=== PATIENT | male | born 2000 | race African-American/Black ===

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

== ENCOUNTER 2018-02-26 19:03 | Emergency (ER) | payer MEDICAID ==
[~2018-02-26] VITALS: Ht 175.3 cm; Wt 75.0 kg
[2018-02-26 19:04] VITALS: BP 123/79
--- NOTE | 2018-02-26 19:11 | NUR ---
BIB [facility] WITH C/O SEIZURE 1/2 HOUR AGO HAS HX OF SEIZURES HAS ONE, 1 X PER MTH PT TAKES PO KEPRA, TOOK MEDS TODAY, IN NAD AT THIS TIME SEE ASSESSMENT VS WNL
[2018-02-26 19:52] LABS: BASOPHILS # (AUTO) 0.05 x10^3/uL (0-0.3); BASOPHILS % (AUTO) 1 % (0-1); EOSINOPHILS # (AUTO) 0.08 x10^3/uL (0-0.8); EOSINOPHILS % (AUTO) 2 % (1-7); LYMPHOCYTES # (AUTO) 1.21 x10^3/uL (1-6.1); LYMPHOCYTES % (AUTO) 25 % (22-44); MD NO; MEAN CORPUSCULAR HEMOGLOBIN 30.8 pg (27.5-34.5); MEAN CORPUSCULAR HGB CONC 34.2 g/dL (33.2-36.2); MEAN PLATELET VOLUME 9.1 fL (7.4-10.4); MONOCYTES # (AUTO) 0.49 x10^3/uL (0-1.4); MONOCYTES % (AUTO) 10 % (2-9); NEUTROPHILS % (AUTO) 62 % (42-75); PLATELET COUNT 182 x10^3/uL (130-400); RED BLOOD COUNT 4.83 x10^6/uL (4.38-5.82); RED CELL DISTRIBUTION WIDTH 13.9 % (9.4-14.8)
[2018-02-26 20:02] LABS: ANION GAP 7 mmol/L (5-15); CALCIUM 8.7 mg/dL (8.5-10.1); CHLORIDE 109 mmol/L (98-107)
[2018-02-26] MEDS ORDERED: LEVETIRACETAM 500 MG TABLET PO STA (20:03)
[2018-02-26 20:06] LABS: ALANINE AMINOTRANSFERASE 22 U/L (12-78); ALKALINE PHOSPHATASE 105 U/L (45-117); BILIRUBIN,TOTAL 0.5 mg/dL (0.2-1.0); CREATININE 1.11 mg/dL (0.7-1.3); TOTAL PROTEIN 6.9 g/dL (6.4-8.2)
[2018-02-26] MEDS ORDERED: LEVETIRACETAM 500 MG TABLET ONE (20:55)
--- NOTE | 2018-02-26 21:08 | NUR ---
Patient/Caregiver given discharge instructions and they have confirmed that they understand the instructions. Patient ambulatory with steady gait.
[2018-02-26] MEDS ORDERED: LORazepam 2 MG/ML, 1ML ONE (21:25)
[2018-02-27] MEDS ORDERED: IBUP200C8 PO (01:12)
== END 2018-02-26 21:09 | disposition home or self-care (01) ==
LOC: ED 20:12
DX: G40.89 Other seizures (principal)
CPT/HCPCS: 36415; 80053; 85025; 93005; 99283

== ENCOUNTER 2018-02-26 21:27 | Inpatient (IN) | payer MEDICAID ==
[~2018-02-26] VITALS: Ht 175.3 cm; Wt 71.4 kg
--- NOTE | 2018-02-26 21:30 | NUR ---
PT RECENTLY D/C FROM ED THIS PM. PT GLF WITNESSED BY BYSTANDERS THIS PM W/ REPORTED SEIZURE. PT FOUND ON GROUND W/ BLOOD ON GROUND AND APPARENT ORAL TRAUMA. PT APPEARS POSTICTAL. HAVING TROUBLE TRACKING STAFF, DELAYED RESPONSE TO COMMANDS, AND A+Ox0. PT PLACED IN C-COLLAR AND STRAIGHT BACK TO 17. SEIZURE PADS IN PLACE, IV ACCESS PER MD AND 1 MG ATIVAN IV ADMIN PER MD ORDER. ALL MONITORING APPLIED. PT TACHYCARDIC. MD AWARE. BIN PACKER AT BEDSIDE.
--- NOTE | 2018-02-26 21:40 | NUR ---
PT REPORT TO PRIMARY RNJORDON.
[2018-02-26] MEDS ORDERED: LORazepam 2 MG/ML, 1ML IVPush ONE (22:00)
--- NOTE | 2018-02-26 22:07 | NUR ---
PT MOTHER BRANT
--- NOTE | 2018-02-26 22:47 | NUR ---
PT IS A&O X4 AT THIS TIME. VSS. WILL CONT TO MONITOR.
[2018-02-26] MEDS ORDERED: LIDOCAINE-MPF 1%, 5ML ONE (23:22)
[2018-02-27] MEDS ORDERED: LEVETIRACETAM 100 MG/ML ORAL SOL PO ONE (00:06)
--- NOTE | 2018-02-27 00:07 | NUR ---
PT RESTING ON GURNEY, 4 SUTURES PLACED IN PT MOUTH. PT TO BE ADMITTED, AWAITING BED. VSS AND WILL CONT TO MONITOR.
--- NOTE | 2018-02-27 00:10 | NUR ---
late entry: Pt with [facility] insurance; transfer denied by Edmund at [facility] and by Mai at [facility].
[2018-02-27] MEDS ORDERED: LORazepam 2 MG/ML, 1ML IVPush PRN ×2 (00:30→17:30)
[2018-02-27] MEDS ORDERED: POLYETHYLENE GLYCOL 17 GM PACKET PO PRN (00:30)
[2018-02-27] MEDS ORDERED: ACETAMINOPHEN 325 MG TABLET PO PRN (00:30)
[2018-02-27] MEDS ORDERED: BISACODYL 10 MG SUPP PR PRN (00:30)
[2018-02-27] MEDS ORDERED: ONDANSETRON 2MG/ML, 2ML IVPush PRN (00:30)
[2018-02-27 01:00] VITALS: BP 134/79
[2018-02-27] MEDS ORDERED: IBUP200C8 PO (01:12)
[2018-02-27 07:28] VITALS: BP 126/74
[2018-02-27] MEDS: LEVETIRACETAM 100 MG/ML ORAL SOL PO SCH ×2 (08:46→20:49)
[2018-02-27] MEDS: SODIUM CHLORIDE FLUSH 10ML SYR IVF SCH ×2 (08:46→21:00)
[2018-02-27] MEDS: SENNA/DOCUSATE TABLET PO SCH (08:47)
[2018-02-27] MEDS: KETOROLAC 30 MG/1 ML IVPush PRN ×2 (10:52→21:00)
[2018-02-27 13:59] VITALS: BP 123/73
[2018-02-27] MEDS ORDERED: PROPOFOL 10 MG/ML, 20ML ONE (16:59)
[2018-02-27] MEDS ORDERED: SUCCINYLCHOLINE 20 MG/ML, 10ML ONE (16:59)
[2018-02-27] MEDS ORDERED: ROCURONIUM 10 MG/ML,10ML ONE (16:59)
[2018-02-27] MEDS ORDERED: ONDANSETRON 2MG/ML, 2ML ONE (16:59)
[2018-02-27] MEDS ORDERED: DEXAMETHASONE 4 MG/ML, 1ML ONE (16:59)
[2018-02-27] MEDS ORDERED: FENTANYL PF 100 MCG/2ML ONE ×2 (16:59→17:58)
[2018-02-27] MEDS ORDERED: SUGAMMADEX 200 MG/2 ML IVPush ONE (17:11)
[2018-02-27] MEDS ORDERED: PROMETHAZINE 12.5 MG SUPP PR PRN (17:30)
[2018-02-27] MEDS ORDERED: PROMETHAZINE 25 MG/ML, 1ML IV PRN (17:30)
[2018-02-27] MEDS ORDERED: MORPHINE SULFATE 4 MG/ML, 1ML IVPush PRN (17:30)
[2018-02-27] MEDS ORDERED: DIAZEPAM 5 MG/ML, 2ML IVPush PRN (17:30)
[2018-02-27] MEDS ORDERED: ONDANSETRON ODT 8 MG PO PRN (17:30)
[2018-02-27] MEDS ORDERED: MEPERIDINE/PF 25MG/0.5ML IVPush PRN (17:30)
[2018-02-27] MEDS ORDERED: hydrALAzine 20 MG/ML, 1ML IV PRN (17:30)
[2018-02-27] MEDS ORDERED: MIDAZOLAM 1 MG/ML, 2ML IV PRN (17:30)
[2018-02-27] MEDS ORDERED: EPHEDRINE 50 MG/ML, 1ML IVPush PRN (17:30)
[2018-02-27] MEDS ORDERED: HALOPERIDOL 5 MG/ML IV PRN (17:30)
[2018-02-27] MEDS ORDERED: OXYcodone 5 MG/5 ML ORAL.SOL UDC PO PRN (17:30)
[2018-02-27] MEDS ORDERED: HYDROmorphone 2 MG/ML, 1ML IVPush PRN (17:30)
[2018-02-27] MEDS ORDERED: LABETALOL 5MG/ML, 20ML IV PRN (17:30)
[2018-02-27] MEDS ORDERED: ONDANSETRON 2MG/ML, 2ML IV PRN (17:30)
[2018-02-27] MEDS ORDERED: ALBUTEROL SULFATE 2.5 MG/3 ML NPPB PRN (17:30)
[2018-02-27] MEDS: FENTANYL PF 100 MCG/2ML IV PRN ×2 (18:00→18:05)
[2018-02-27 19:47] VITALS: BP 120/78
[2018-02-27] MEDS ORDERED: HYDROcodone/APAP 5/325 TABLET PO PRN (23:00)
[2018-02-28 01:28] VITALS: BP 111/61
[2018-02-28 07:48] VITALS: BP 102/61
[2018-02-28] MEDS: SENNA/DOCUSATE TABLET PO SCH (09:00)
[2018-02-28] MEDS: SODIUM CHLORIDE FLUSH 10ML SYR IVF SCH (09:12)
[2018-02-28] MEDS: LEVETIRACETAM 100 MG/ML ORAL SOL PO SCH (09:12)
[2018-02-28] MEDS ORDERED: LEVE100S PO (11:23)
[2018-02-28] MEDS ORDERED: ACET325T14 PO (11:23)
[2018-02-28] MEDS ORDERED: SENN1TAB8 PO (11:23)
[2018-02-28] MEDS ORDERED: IBUP-1484 PO (11:23)
[2018-02-28 13:27] VITALS: BP 108/67
== END 2018-02-28 14:10 | disposition home or self-care (01) | DRG 101 ==
LOC: ED 21:46 → EDIP 23:52 → 4WST 02-27 00:47 → DCLOUNGE 02-28 14:00
PROVIDERS: ADMIT Hospitalist; ATTEND Hospitalist
PROC: 0CQ1XZZ Repair Lower Lip, External Approach (ICD-10-PCS; 2018-02-27)
PROC: 0RSJXZZ Reposition Right Shoulder Joint, External Approach (ICD-10-PCS; principal; 2018-02-27 18:15)
DX: G40.909 Epilepsy, unspecified, not intractable, without status epilepticus (principal); S43.001A Unspecified subluxation of right shoulder joint, initial encounter; X58.XXXA Exposure to other specified factors, initial encounter; S01.511A Laceration without foreign body of lip, initial encounter; M21.821 Other specified acquired deformities of right upper arm; Z91.19 Patient's noncompliance with other medical treatment and regimen; Y93.89 Activity, other specified; Y92.89 Other specified places as the place of occurrence of the external cause; Y99.8 Other external cause status
CPT/HCPCS: 70450; 70486; 72125; 76000; 93005; G0378; J1100; J1885; J2405; J2704; J3010; J0330; J2060